=== PATIENT | male | born 1980 | race Caucasian/White ===

== ENCOUNTER 2025-03-04 11:29 | Emergency (ER) | payer MEDICAID ==
[~2025-03-04] VITALS: Ht 172.7 cm; Wt 76.0 kg
[2025-03-04 11:37] VITALS: TEMP 36.9; O2SAT 97
[2025-03-04 12:29] VITALS: BP 106/71; PULSE 98; RESP 16
[2025-03-04] MEDS: ONDANSETRON HCL 4MG/2ML INJ IV ONE (12:29)
[2025-03-04] MEDS: MORPHINE SULFATE 4 MG/ML INJ (FOR IV/IM USE) IV ONE (12:29)
== END 2025-03-04 14:51 | disposition left against medical advice (07) ==
LOC: ER 12:18
DX: R06.02 Shortness of breath (principal); R07.89 Other chest pain; Z79.01 Long term (current) use of anticoagulants; Z86.711 Personal history of pulmonary embolism; Z86.718 Personal history of other venous thrombosis and embolism
CPT/HCPCS: 93005; 96374; 96375; 99284; J2405; J2270; Z7610